=== PATIENT | male | born 1945 | race African-American/Black ===

== ENCOUNTER 2017-08-03 22:25 | Inpatient (IN) | payer OTHER ==
[~2017-08-03] VITALS: Ht 188 cm; Wt 93.9 kg
[2017-08-03 22:26] VITALS: BP 230/138
[2017-08-03 22:56] LABS: ABSOLUTE BASOPHILS 0.1 thou/uL (0.0-0.2); ABSOLUTE EOSINOPHILS 0.2 thou/uL (0.0-0.7); ABSOLUTE LYMPHOCYTES 5.3 thou/uL (0.8-5.3); ABSOLUTE MONOCYTES 1.3 thou/uL (0.0-1.2); ABSOLUTE NEUTROPHILS 4.4 thou/uL (1.6-8.1); BASOPHILS 0.7 %; EOSINOPHILS 1.7 %; HEMATOCRIT 41.5 % (42.0-52.0); HEMOGLOBIN 13.5 gm/dL (14.0-18.0); MCH 31.8 pg (26.0-34.0); MCHC 32.6 g/dL (28.0-37.0); MCV 97.7 fL (80.0-100.0); MONOCYTES 11.2 %; MPV 10.3 fl. (7.2-11.1); NUCLEATED RBCS 0 /100WBC; PLATELET COUNT* 265 thou/uL (150-400); POLYS 39.4 %; RBC 4.25 mil/uL (4.50-6.00); RDW-CV 15.4 % (10.5-14.5); WBC 11.2 thou/uL (4.0-11.0)
[2017-08-03 23:14] LABS: URINE BILIRUBIN NEGATIVE (Negative); URINE BLOOD 1+ (Negative); URINE CLARITY CLEAR; URINE COLOR YELLOW; URINE GLUCOSE-RANDOM TRACE (Negative); URINE KETONES NEGATIVE (Negative); URINE LEUKOCYTES-REFLEX NEGATIVE (Negative); URINE NITRITE-REFLEX NEGATIVE (Negative); URINE PROTEIN 3+ (Negative); URINE UROBILINOGEN 0.2 E.U./dl (0.2-1.0)
[2017-08-03 23:16] LABS: APTT 30.6 Seconds (25.0-31.3); INR 1.2; PROTIME 11.2 Seconds (9.20-11.50)
[2017-08-03 23:20] LABS: AMORPHOUS URATES Moderate /LPF (None Seen); BACTERIA-REFLEX >30 Many /HPF (None Seen); COARSE GRANULAR CASTS 0-3 Few /LPF (None Seen); FINE GRANULAR CASTS 0-3 Few /LPF (None Seen); HYALINE CASTS 0-3 Few /LPF (None Seen); MUCUS 4-6 Moderate strn/LPF (None Seen); SQUAMOUS 0-3 Few /LPF (0-3); TRANSITIONAL EPITHEL CELL 0-3 Few /LPF (None Seen); URINE WBC-REFLEX >25 Many /HPF (0-5); WBC CLUMPS Moderate (None Seen)
[2017-08-03 23:28] LABS: BE -8.2 mmol/L (-2 to +3); HCO3 22.5 mmol/L (22.0-26.0)
[2017-08-03 23:29] LABS: PCO2 71.1 mmHg (35.0-45.0); pH 7.119 (7.340-7.450)
[2017-08-03 23:30] LABS: PO2 152.6 mmHg (75.0-100.0)
[2017-08-03 23:51] LABS: ANION GAP 13 mmol/L (7-16); BUN 26 mg/dL (7-18); CHLORIDE 104 mmol/L (98-107); CO2 22 mmol/L (21-32); POTASSIUM 3.5 mmol/L (3.5-5.1); SODIUM 139 mmol/L (136-145)
[2017-08-03 23:52] LABS: CALCIUM 8.5 mg/dL (8.5-10.1); CREATININE 2.1 mg/dL (0.6-1.3); GLUCOSE 166 mg/dL (70-99)
[2017-08-03 23:57] LABS: ALBUMIN 3.5 g/dL (3.4-5.0); ALKALINE PHOSPHATASE 70 U/L (46-116); SGOT 55 U/L (15-37); SGPT 42 U/L (30-65); TOTAL BILIRUBIN 0.4 mg/dL (<0.1-1.0); TOTAL PROTEIN 8.1 g/dL (6.4-8.2)
[2017-08-04] VITALS (27 sets, daily range): BP systolic 101–178; BP diastolic 49–114
[2017-08-04 00:14] LABS: NT-PRO BRAIN NAT PEPTIDE 590 pg/mL (<300); TROPONIN-I LEVEL <0.06 ng/mL (<0.06)
--- NOTE | 2017-08-04 00:40 | NUR ---
PT TAKEN TO CT BY BOX TRUCK OWNER OPERATOR AND RT ON VENTILATOR AND LIFEPAK AT THIS TIME.
--- NOTE | 2017-08-04 01:20 | NUR ---
PATIENT ARRIVED ON UNIT @ 110. ON VENT, BP 160/93, RR 16, HR 94, O2 95. PT THRASHING, RESTLESS IN BED. OG IN PLACE TO LIS. HAS LARGE THICK SECRETIONS BEIGE, PINK, TINGED SECRETIONS. WILL CONTINUE MONITORING CLOSELY.
[2017-08-04 06:09] LABS: BE -4.7 mmol/L (-2 to +3)
--- NOTE | 2017-08-04 07:49 | NUR ---
PATIENT PROGRESSING TOWARDS GOALS. ON PROPOFOL GTT, BP, HR, RR O2 ALL WNL. CONTINUOUS ORAL CARE GIVEN. VENTILATOR STANDING ORDERS INITIATED. PULMONARY CONSULTED. MERIUM IN WAITING ROOM. SHE HAS NO VOICED CONCERNS AT THE MOMENT. WILL CONTINUE TO MONITOR CLOSELY.
--- NOTE | 2017-08-04 07:57 | NUR ---
7103 ASSUMED CARE OF PATIENT. PLEASE SEE DOCUMENTED ASSESSMENT. PT ON VENT WITH PROPOFOL SEDATION. DR VELAZQUEZ HERE AND WENT TO WAITING ROOM TO SPEAK WITH SPOUSE
[2017-08-04 08:25] LABS: INFLUENZA A ANTIGEN None Detected (None Detect); INFLUENZA B ANTIGEN None Detected (None Detect)
--- NOTE | 2017-08-04 08:35 | NUR ---
DISCUSSED FLU SHOT WITH SPOUSE AND SON AND PT WILL DECLINE FLU SHOT AT THIS TIME. DR NARAYAN ON UNIT AND UPDATED ON PATIENT STATUS
[2017-08-04 10:01] LABS: HEMATOCRIT 38.1 % (42.0-52.0); HEMOGLOBIN 12.8 gm/dL (14.0-18.0); MCHC 33.5 g/dL (28.0-37.0); MCV 95.3 fL (80.0-100.0); NUCLEATED RBCS 0 /100WBC; PLATELET COUNT* 213 thou/uL (150-400); RDW-CV 15.4 % (10.5-14.5)
[2017-08-04 10:11] LABS: ALBUMIN 3.1 g/dL (3.4-5.0); ALKALINE PHOSPHATASE 68 U/L (46-116); ANION GAP 8 mmol/L (7-16); BUN 30 mg/dL (7-18); CALCIUM 8.2 mg/dL (8.5-10.1); CHLORIDE 105 mmol/L (98-107); CHOLESTEROL 202 mg/dL (<200); CO2 27 mmol/L (21-32); CREATININE 2.1 mg/dL (0.6-1.3); GLUCOSE 140 mg/dL (70-99); HDL CHOLESTEROL 34 mg/dL (>40); LDL CHOLESTEROL 151 mg/dL (<100); MAGNESIUM 1.9 mg/dL (1.8-2.4); POTASSIUM 4.1 mmol/L (3.5-5.1); SGOT 56 U/L (15-37); SGPT 59 U/L (30-65); SODIUM 140 mmol/L (136-145); TC:HDL 5.9 Ratio (Not establshd); TOTAL BILIRUBIN 0.5 mg/dL (<0.1-1.0); TOTAL PROTEIN 7.3 g/dL (6.4-8.2); TRIGLYCERIDE 89 mg/dL (<150); VLDL 18 mg/dL (<40)
[2017-08-04 10:12] LABS: SERUM ASSESSMENT Clear
--- NOTE | 2017-08-04 10:18 | NUR ---
ECHOCARDIOGRAM IN PROGRESS. HAND COUNTER NOW AWARE OF PATIENT.
[2017-08-04 10:20] LABS: ABSOLUTE LYMPHOCYTES 0.6 thou/uL (0.8-5.3); ABSOLUTE NEUTROPHILS 8.4 thou/uL (1.6-8.1)
[2017-08-04 10:21] LABS: ANISOCYTOSIS 1+; PLATELET ESTIMATE ADEQUATE; POIKILOCYTOSIS 1+
--- NOTE | 2017-08-04 10:45 | NUR ---
PT ADMITTED LAST NIGHT WITH RESP FAILURE, WAS INTUBATED IN THE E.D. PT REMAINS ON VENT, NOT IN THE ROOM AT THIS TIME. WILL ASSESS AT LATER TIME.
[2017-08-04] MEDS ORDERED: NORVASC10 MG PO (12:56)
[2017-08-04] MEDS ORDERED: LISINOPRIL-HCT1 EAC1 PO (12:57)
[2017-08-04] MEDS ORDERED: FLOMAX0.4 MG PO (12:58)
[2017-08-04] MEDS ORDERED: VIAGRA100 MG PO (12:59)
[2017-08-04] MEDS ORDERED: CIALIS20 MG PO (13:00)
--- NOTE | 2017-08-04 13:53 | 2DMMODE ---
[place] [address] 2 D/M-MODE ECHOCARDIOGRAM Name: JUAN RAMON CASAS Room: [address] IN [facility]#: [id number] Admission: 08/03/17 Attend Phys: Osiel Bennett, Discharge: Date of : 43 Date of Service: 08/04/17 1353 Report #: [id number] THIS REPORT FOR: //name// APPROVED REPORT Study performed: 08/04/2017 10:11:39 EXAM: Comprehensive 2D, Doppler, and color-flow Echocardiogram Patient Location: In-Patient Room #: 003 Status: routine BSA: 2.12 HR: 64 bpm BP: 117/66 mmHg Rhythm: NSR Other Information Study Quality: Good Indications Dyspnea Respiratory failure, pulmonary edema 2D Dimensions LVEF(%): 44.19 (>50%) IVSd: 20.77 (7-11mm) LVOT Diam: 23.16 (18-24mm) LVDd: 46.69 mm PWd: 11.32 (7-11mm) Ascending Ao: 27.44 (22-36mm) LVDs: 36.49 (25-40mm) Aortic Root: 32.80 mm Rose's LVEF: 44.19 % Volumes Left Atrial Volume (Systole) LA ESV Index: 36.00 mL/m2 Aortic Valve AoV Peak Gary.: 1.36 m/s AO Peak Gr.: 7.41 mmHg LVOT Max P.43 mmHg AO Mean Gr.: 4.37 mmHg LVOT Mean P.72 mmHg LVOT Max V: 1.05 m/s AO V2 VTI: 22.89 cm LVOT Mean V: 0.58 m/s YVONNE (VTI): 3.31 cm2 LVOT V1 VTI: 18.00 [place] [address] 2 D/M-MODE ECHOCARDIOGRAM Name: JUAN RAMON CASAS Room: [address] IN ..#: [id number] Admission: 08/03/17 Attend Phys: Osiel Bennett, Discharge: Date of : 43 Date of Service: 08/04/17 1353 Report #: [id number] E/A Ratio: 0.97 MV Decel. Time: 244.79 ms MV E Max Gary.: 0.82 m/s MV PHT: 70.99 ms MVA (PHT): 3.10 cm2 TDI E/Lateral E': 16.40 E/Medial E': 20.50 Medial E' Gary.: 0.04 m/s Lateral E' Gary.: 0.05 m/s Pulmonary Valve PV Peak Gary.: 0.85 m/s PV Peak Gr.: 2.89 mmHg Left Ventricle The left ventricle is normal size. There is normal LV segmental wall motion. Moderate concentric left ventricular hypertrophy. Left ventricular systolic function is normal. LVEF is 55-60%. Transmitral Doppler flow pattern suggests impaired LV relaxation. Right Ventricle The right ventricle is normal size. The right ventricular systolic function is normal. Atria Left atrium is mildly dilated. The right atrium size is normal. Aortic Valve Mild aortic valve sclerosis. No aortic regurgitation is present. There is no aortic valvular stenosis. Mitral Valve The mitral valve is normal in structure. Trace mitral regurgitation. No evidence of mitral valve stenosis. Tricuspid Valve The tricuspid valve is normal in structure. There is no tricuspid valve regurgitation noted. Pulmonic Valve The pulmonary valve is normal in structure. There is no pulmonic valvular regurgitation. Great Vessels The aortic root is normal in size. IVC is [place] [address] 2 D/M-MODE ECHOCARDIOGRAM Name: MELISSA CASASJOVANA FERMIN Room: [address] [place] [facility]#: [id number] Admission: 08/03/17 Attend Phys: Osiel Bennett, Discharge: Date of : 43 Date of Service: 08/04/17 1353 Report #: [id number] collapses with >50% inspiration Pericardium There is no pericardial effusion. <Conclusion> The left ventricle is normal size. Moderate concentric left ventricular hypertrophy. Left ventricular systolic function is normal. LVEF is 55-60%. Transmitral Doppler flow pattern suggests impaired LV relaxation. Left atrium is mildly dilated. Trace mitral regurgitation. <ELECTRONICALLY SIGNED> By: Ruslan Kimbrough MD, FACC 08/04/17 1353 1353 1353 Ruslan Kimbrough MD, FACC /INF
--- NOTE | 2017-08-04 14:44 | EKG ---
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: AJ : 1945 Requested By: Alejandro Jean Order Number: [id number] MD: Ruslan Kimbrough Measurements Intervals [place] Rate: 148 P: 78 SD: 143 QRS: 38 QRSD: 94 T: 101 QT: 289 QTc: 454 Interpretive Statements Multifocal atrial tachycardia RSR' in V1 or V2, probably normal variant Probable LVH with secondary repol abnrm ST depression, probably rate related No previous ECG available for comparison Electronically Signed On 08-04-2017 14:44:08 FORKLIFT TECHNICIAN by Ruslan Kimbrough [email or web address] <ELECTRONICALLY SIGNED> By: Ruslan Kimbrough MD, [facility] 08/04/17 1444 31 31 Ruslan Kimbrough MD, [facility] /EPI
--- NOTE | 2017-08-04 17:01 | NUR ---
PATIENT MAKING SOME PROGRESS TOWARDS GOALS. NO FORMAL TRIAL OFF OF SEDATION BUT PATIENT HAS BEEN ABLE TO FOLLOW COMMANDS AND OPEN EYES TO VOICE. SEDATED ON VENT WITH PROPOFOL GTT AND FENTANYL PRN. ECHO OF HEART COMPLETED AND VENOUS DOPPLERS DONE. SEEN BY CONSULTS. MULTIPLE VISITORS
[2017-08-05] VITALS (19 sets, daily range): BP systolic 108–140; BP diastolic 47–66
[2017-08-05 02:41] LABS: URINE BILIRUBIN NEGATIVE (Negative); URINE BLOOD TRACE (Negative); URINE CLARITY CLEAR; URINE COLOR STRAW; URINE GLUCOSE-RANDOM NEGATIVE (Negative); URINE KETONES NEGATIVE (Negative); URINE LEUKOCYTES NEGATIVE (Negative); URINE NITRITE NEGATIVE (Negative); URINE PROTEIN NEGATIVE (Negative); URINE UROBILINOGEN 0.2 E.U./dl (0.2-1.0)
--- NOTE | 2017-08-05 05:30 | NUR ---
PT. PROGRESSING TOWARDS GOALS. VITAL SIGNS HAVE BEEN WITHIN NORMAL LIMITS THROUGHOUT SHIFT. FENTANYL GIVEN X2 PER PRN ORDER DUE TO RESTLESSNESS. PROPOFOL GTT REMAINS AT 50 MCG/KG/MIN. PT. WAS ABLE TO FOLLOW COMMANDS THIS SHIFT. ADEQUATE URINE OUTPUT. NO LABS ORDERED FOR THIS A.M. FAMILY UPDATED ON PT. STATUS. WILL CONTINUE TO MONITOR.
--- NOTE | 2017-08-05 07:05 | CON ---
[address] [address] CONSULTATION Name: JUAN RAMON CASAS Room: [address] IN M.R.#: [id number] Admission: 08/03/17 Attend Phys: Osiel Bennett MD Discharge: Date of : 43 Report #: [id number] THIS REPORT FOR: //name// CC: Osiel Bennett REASON FOR CONSULTATION: Acute respiratory failure. HISTORY OF PRESENT ILLNESS: The patient was intubated and sedated at the time of my evaluation. I did review the medical records and discussed with the nursing staff. No family at the bedside. He is a 72-year-old male patient with history of hypertension who presented to the emergency room with shortness of breath. Apparently, he had a history of viral syndrome and symptoms of upper respiratory tract infection a week ago that he was improving for a few days prior to hospitalization. However, he woke up the night of the admission with shortness of breath and he was in tripod position. In the ER, he was in significant distress, he was intubated. It was felt that he has pulmonary edema and he was given Lasix. Chest x-ray actually supports this pulmonary vascular congestion, his blood pressure was more than 200 systolic. Per the RN report, there is no significant secretion through the ET tube, but there is some oral secretions. He has history of smoking, although there is no mention of COPD in his records. His pCO2 initially was low, but this morning, his FiO2 on the vent decreased to 40%. Per the record, he is not known to have cardiac history. ALLERGIES: No known drug allergies. PAST MEDICAL HISTORY: Only mentioned of hypertension. PAST SURGICAL HISTORY: None. SOCIAL HISTORY: He smokes 1 pack per day for the last 30 years. Also, he drinks 1-2 beers daily. FAMILY HISTORY: Not obtainable. REVIEW OF SYSTEMS: At this point, not obtainable, he is intubated and sedated. PHYSICAL EXAMINATION: VITAL SIGNS: On examination, he is on 40% FiO2, O2 saturation 95% on the monitor, blood pressure 132/81, breathing 20 times a minute on the vent, and temperature 37. GENERAL: In bed, sedated, intubated and gastric tube in place. HEENT: Head normocephalic, atraumatic. Pupils are equal, reactive to light. External ear looks healthy and normal. He is not pale, not jaundiced. Oral cavity, moist mucous membrane with ET tube in place. NECK: Supple. No palpable lymph node. No palpable thyroid. Trachea central. CHEST: Good air movement heard bilaterally, some basilar crackles, [place] [address] CONSULTATION Name: JUAN RAMON CASAS JR Room: [address] IN M.R.#: [id number] Admission: 08/03/17 Attend Phys: Osiel Bennett MD Discharge: Date of : 43 Report #: [id number] wheezes, no tenderness, no deformities on the chest to inspection. HEART: S1, S2, no murmur. ABDOMEN: Benign, soft, lax, nontender, positive bowel sounds. LOWER EXTREMITIES: No edema. No calf tenderness. NEUROLOGIC: He is sedated. Further surgical evaluation could not be done. LYMPHATICS: No palpable lymph node. MUSCULOSKELETAL: No deformities. No contractures. PSYCHIATRIC: Mood and affect could not be evaluated. He is sedated. LABORATORY DATA: His chest x-ray showing endotracheal tube in good position and bilateral pulmonary infiltrates. CT scan report of the chest without contrast is pending, although I reviewed the CT scan showing bilateral consolidation basilarly. His creatinine was elevated at 2.1. His lactic acid elevated at 2.3. His BNP was elevated in addition to elevated troponin. His potassium is 3.5. His INR is 1.2. His ABGs 7.35/38/250, initially it was 7.11/71/152, initially when he placed on the vent. His influenza A is negative and influenza B screen is negative. His white blood count is 11.2, hemoglobin 15.2, and platelets of 265. IMPRESSION: 1. Acute hypoxic hypercapnic respiratory failure. 2. Presume chronic obstructive pulmonary disease with history of smoking. 3. Bilateral infiltrates/pneumonia. 4. Congestive heart failure exacerbation with fluid overload. 5. Hypertension. The patient with acute respiratory failure, multifactorial as mentioned above, I agree with the antibiotics, scheduled nebulization treatment. We need to keep negative fluid balance. Continue diuresis. Keep the current plan of sedation; however, in day or 2, we may consider switching him from propofol to Versed. He is on fentanyl p.r.n. He is on steroids too, which is appropriate at this point. I agree with the Doppler ultrasound and V/Q scan. We will follow along with you. Will do a sputum culture and sensitivity, repeat ABGs and chest x-ray in the morning. Thank you for the consult. <ELECTRONICALLY SIGNED> By: Mary Monroy MD 08/05/17 0705 0928 1311Dnidhi Hill MD /nt
--- NOTE | 2017-08-05 07:11 | NUR ---
PT REMANS ON VENT PT WILL OPEN EYES WITH STIMULI. NO AM LABS NOTED. PT REMANS ON PROPOFOL GTT. HERE TO SEE PT.
[2017-08-05 07:54] LABS: ABSOLUTE LYMPHOCYTES 0.7 thou/uL (0.8-5.3); ABSOLUTE MONOCYTES 0.6 thou/uL (0.0-1.2); ABSOLUTE NEUTROPHILS 11.4 thou/uL (1.6-8.1); BASOPHILS 0.1 %; HEMATOCRIT 35.4 % (42.0-52.0); HEMOGLOBIN 12.1 gm/dL (14.0-18.0); LYMPHOCYTES 5.6 %; MCH 31.6 pg (26.0-34.0); MCHC 34.2 g/dL (28.0-37.0); MCV 92.4 fL (80.0-100.0); MONOCYTES 4.7 %; MPV 10.1 fl. (7.2-11.1); NUCLEATED RBCS 0 /100WBC; PLATELET COUNT* 228 thou/uL (150-400); POLYS 89.6 %; RBC 3.83 mil/uL (4.50-6.00); RDW-CV 14.7 % (10.5-14.5); WBC 12.7 thou/uL (4.0-11.0)
[2017-08-05 07:58] LABS: CALCIUM 8.3 mg/dL (8.5-10.1); CREATININE 2.3 mg/dL (0.6-1.3); POTASSIUM 3.8 mmol/L (3.5-5.1)
--- NOTE | 2017-08-05 08:13 | NUR ---
DR KINGSLEY HERE, PT TO TUBE TRIAL FOR 30 MINUETS, RT AWARE PROPOFOL OFF AT THIS TIME. IN ROOM UPDATED ON PLAN OF CARE.
--- NOTE | 2017-08-05 09:11 | CON ---
[address] [address] CONSULTATION Name: JUAN RAMON CASAS JR Room: [address] IN .R.#: [id number] Admission: 08/03/17 Attend Phys: Osiel Bennett MD Discharge: Date of : 43 Report #: [id number] THIS REPORT FOR: //name// CC: Osiel Love DO Osiel Bennett INDICATION: Acute heart failure. HISTORY OF PRESENT ILLNESS: The patient is a very pleasant 72-year-old -Lao male who was intubated in the emergency room when he was found to be in respiratory distress. Per the family, he experienced increasing shortness of breath yesterday. He got to the point where he was gasping for air and brought to the emergency room. He was found to be quite hypertensive with systolic blood pressure above 200. He has a history of longstanding high blood pressure for which he takes medication. He is without other significant past medical history. He apparently had some shoulder surgery as a child. The patient reports upper respiratory tract infection type symptoms last week that was apparently improving until this episode. There was no report of chest pain. PAST MEDICAL HISTORY: 1. Hypertension. 2. Shoulder surgery remotely. ALLERGIES: None documented. HOME MEDICATIONS: None listed. REVIEW OF SYSTEMS: Not obtainable as the patient is intubated. PHYSICAL EXAMINATION: VITAL SIGNS: Presently, blood pressure 108/58, pulse 66 and regular. GENERAL: This is an male who is healthy appearing, intubated and sedated. HEENT: Head is normocephalic, atraumatic. NECK: Shows no jugular venous distention. CHEST: Reveals clear lung brunner. CARDIAC: Reveals a regular rhythm without gallop or murmur. ABDOMEN: Reveals normal bowel sounds. The abdomen is soft and nontender. EXTREMITIES: Shows no edema. Peripheral pulses palpable. Chest x-ray shows pulmonary edema and cardiomegaly. [place] [address] CONSULTATION Name: JUAN RAMON CASAS Room: [address] IN [facility].#: [id number] Admission: 08/03/17 Attend Phys: Osiel Bennett MD Discharge: Date of : 43 Report #: [id number] Labs are reviewed. Electrolytes are within normal limits. BUN 30, creatinine 2.1, serum glucose 140. LFTs within normal limits. Troponin initially less than 0.06, subsequently 0.92, followup troponin is pending. NT-proBNP 590, total cholesterol 202, triglycerides 89, HDL 34, and LDL 151. White blood cell count 9.0, hemoglobin 12.8, and platelet count 213,000. ABG shows a pH of 7.35, pCO2 of 38, and pO2 of 250 after being intubated. Initial blood gas showed a pH of 7.119, pCO2 of 71, and PO2 of 152. IMPRESSION AND RECOMMENDATIONS: 1. Acute respiratory failure, multifocal. The patient has some element of congestive heart failure, likely diastolic in nature. An echocardiogram has been ordered. The patient is intubated and stable at present. 2. Recent upper respiratory tract infection with multi-lobe infiltrate presently. We will need to repeat x-ray after diuresis to look for residual infiltrate. Pulmonology is seeing the patient. 3. Elevated troponin, possibly due to cardiac strain from acute respiratory failure. We will need at least stress testing in the near future if noninvasive evaluation pending the results of echocardiogram. 4. Hypertension. Blood pressure low normal presently after diuresis. We will assess the patient's needs for antihypertensive medications and make adjustments as needed. 5. Chronic tobacco use. Cessation will be advised prior to discharge. <ELECTRONICALLY SIGNED> By: Ruslan Kimbrough MD, FACC 08/05/17 0911 1015 1556Micalli Kimbrough MD, FACC /nt
--- NOTE | 2017-08-05 09:30 | NUR ---
PT HR 140'S , EKG OBTAINED, ST. CARDIOLOGY NURSE CALLED, WILL CALL DR DEL REAL AND UPDATE.
--- NOTE | 2017-08-05 10:22 | NUR ---
AMIODORNE BOLUS GIVEN AND AMIODORONE GTT STARTED. FAMILY IN ROOM.NOTED 8-9 RUNS OF V TACH.
--- NOTE | 2017-08-05 11:40 | NUR ---
DR TROTTER ON UNIT. FELLOW STAFF MEMBER HELPED WITH CARDIOVERSION IN ROOM.PT IN SR.
--- NOTE | 2017-08-05 19:30 | NUR ---
PT REMANS AROUSABLE ON VENT. PROPOFOL GTT REMAINS INFUSING. PT TURNED THROUGH SHIFT. FREQUENT ORAL CARE GIVEN. PT HAS HAD NO FURTHER RUNS OF V-TACH SINCE CARDIOVERSION. MULTIPLE FAMILY MEMBERS IN ROOM THROUGH OUT DAY. PT IS PROGRESSING TOWARDS DISCHARGE GOALS.
[2017-08-06] VITALS (20 sets, daily range): BP systolic 128–199; BP diastolic 56–98
[2017-08-06 04:23] LABS: HEMATOCRIT 37.1 % (42.0-52.0); HEMOGLOBIN 12.6 gm/dL (14.0-18.0); MCH 31.9 pg (26.0-34.0); MCHC 33.8 g/dL (28.0-37.0); MCV 94.3 fL (80.0-100.0); MPV 10.8 fl. (7.2-11.1); RBC 3.94 mil/uL (4.50-6.00); RDW-CV 15.1 % (10.5-14.5); WBC 11.9 thou/uL (4.0-11.0)
[2017-08-06 04:25] LABS: CALCIUM 8.4 mg/dL (8.5-10.1); CREATININE 2.6 mg/dL (0.6-1.3); MAGNESIUM 2.3 mg/dL (1.8-2.4); POTASSIUM 3.7 mmol/L (3.5-5.1)
--- NOTE | 2017-08-06 05:59 | NUR ---
MINIMAL PROGRESSION TOWARDS GOALS. ASSESSMENTS AND VS OBTAINED THROUGH OUT THE NIGHT, SEE CHARTING. COAL INSPECTOR ON AND TRACING SB/SR. PT REMAINS ON A AMNIO GTT. PT REMAINS ON VENT WITH ORDERED SETTINGS. SEDATION USED IS PROPOFOL. OG IS AT 70 AND HAS NOVASOURCE RENAL INFUSING AT 30ML/HR. PT HAD VERY LITTLE RESIDUALS.
--- NOTE | 2017-08-06 06:18 | NUR ---
TURNED OFF TUBE FEEDING FOR WEANING TRIAL THIS AMM.
--- NOTE | 2017-08-06 07:51 | NUR ---
0211 ASSUMED CARE OF PATIENT. PLEASE SEE DOCUMENTED ASSESSMENT. DR VELAZQUEZ TO SEE PATIENT. TITRATING PROPOFOL DOWN PATIENT IS TO TRIAL TODAY. AMIO GTT AT 0.5 MG/MN
--- NOTE | 2017-08-06 08:40 | NUR ---
SEDATION OFF. STARTING VENT TRIAL. PT FOLLOWS KATHY. VS [id number] 156/70
--- NOTE | 2017-08-06 09:07 | NUR ---
PATIENT TOLERATING TRIAL. RT HERE TO DRAW ABG.
--- NOTE | 2017-08-06 09:08 | NUR ---
TRIAL COMPLETED.GCS 12 BP 184/79 HR 58 RESP 18 SAT 100% ABG DRAWN. WILL KEEP PT ON TRIAL SETTINGS AND AWAKE
[2017-08-06 09:16] LABS: BE 0 mmol/L (-2 to +3); HCO3 24.8 mmol/L (22.0-26.0); PCO2 41.1 mmHg (35.0-45.0); PO2 93.9 mmHg (75.0-100.0); pH 7.399 (7.340-7.450)
--- NOTE | 2017-08-06 09:26 | NUR ---
ABG'S TO DR GUY, ORDERS RECEIVED TO EXTUBATE PT
--- NOTE | 2017-08-06 09:57 | NUR ---
0930 EXTUBATED AND OG REMOVED PER ORDER. PLACED ON OXYGEN AT O2 AT 2LPM NASAL CANNULA. RESTRAINTS REMOVED. GIVEN YANKAUER FOR ORAL SECRETIONS
--- NOTE | 2017-08-06 13:39 | NUR ---
SPOKE WITH DR TROTTER REGARDING PERSISTANT HYPERTENSION. ORDERS NOTED.
--- NOTE | 2017-08-06 13:50 | EKG ---
[place] [address] ELECTROCARDIOGRAM REPORT Name: JUAN RAMON CASAS JR Room: [address] ADM IN M.R.#: [id number] Admission: 08/03/17 Attend Phys: Osiel Bennett MD Discharge: Date of : 43 Report #: [id number] THIS REPORT FOR: //name// [facility] Test Date: 2017-08-05 Test Time: 09:29:47 Pat Name: JUAN RAMON CASAS Department: Room: [address] Gender: M Hand Picker: UNKNOWN : 1945 Requested By: Ruslan Kimbrough Order Number: [id number] Josafat MD: Ruslan Kimbrough Measurements Intervals [place] Rate: 147 P: 0 [place]: 54 QRS: 31 QRSD: 93 T: 84 QT: 334 QTc: 523 Interpretive Statements Atrial flutter with 21 conduction Consider left ventricular hypertrophy ST depression, probably rate related Prolonged QT interval Missing lead(s): V2 Compared to ECG 08/03/2017 22:32:30 Prolonged QT interval now present ST (T wave) deviation still present Electronically Signed On 08-06-2017 13:50:47 COTTON ROLL PACKER by Ruslan Kimbrough [email or web address] <ELECTRONICALLY SIGNED> By: Ruslan Kimbrough MD, FACC 08/06/17 1350 0929 0929 Ruslan Kimbrough MD, FAC /EPI
--- NOTE | 2017-08-06 16:12 | NUR ---
RENAL ULTRASOUND IN PROGRESS.
--- NOTE | 2017-08-06 18:32 | NUR ---
PATIENT PROGRESSING TOWARDS GOALS. OFF OF VENTILATOR WITH GOOD OXYGENATION ON 2LPM CANNULA. RESUMED DIET. TRANSITIONED TO ORAL MEDICATIONS. MANY VISITORS. GOAL IS TO CONTROL HYPERTENSION
[2017-08-07] VITALS (10 sets, daily range): BP systolic 123–167; BP diastolic 57–78
[2017-08-07 04:25] LABS: HEMATOCRIT 42.1 % (42.0-52.0); MCH 31.9 pg (26.0-34.0); MCHC 35.2 g/dL (28.0-37.0); MCV 90.6 fL (80.0-100.0); MPV 9.7 fl. (7.2-11.1); RBC 4.64 mil/uL (4.50-6.00); RDW-CV 14.5 % (10.5-14.5); WBC 12.8 thou/uL (4.0-11.0)
[2017-08-07 04:41] LABS: HEMOGLOBIN 14.8 gm/dL (14.0-18.0)
[2017-08-07 04:50] LABS: CALCIUM 8.8 mg/dL (8.5-10.1); MAGNESIUM 2.4 mg/dL (1.8-2.4); POTASSIUM 3.3 mmol/L (3.5-5.1)
[2017-08-07 05:01] LABS: CREATININE 1.6 mg/dL (0.6-1.3)
--- NOTE | 2017-08-07 05:26 | NUR ---
PROGRESSION TOWARDS GOAL. ASSESSMENT AND VS OBTAINED THROUGH OUT THE NIGHT, BP REMAINED IN THE NORMAL RANGE AND NO HYDRALIZNE WAS GIVEN. CUSTOMS COMPLIANCE SPECIALIST ON AND TRACING SB/SR. O2 SAT WAS WITH IN NORMAL RANGE WITH 2 L NC ON. PT SLEPT THROUGH OUT THE NIGHT WITH OUT ANY COMPLAINTS.
--- NOTE | 2017-08-07 10:27 | NUR ---
SPOKE WITH PT, HE IS ALERT AND ORIENTED AND ABLE TO ANSWER QUESTIONS. PT WAS EXTUBATED YESTERDAY. PT LIVES AT HOME WITH HIS . HE IS NORMALLY ACTIVE AND INDEP. HE HAS NO DME AT HOME. PT PLANS ON RETURNING HOME WITH . DISCUSSED ROLE OF CASE MGT, WILL CONTINUE TO FOLLOW.
--- NOTE | 2017-08-07 15:20 | NUR ---
PT TRANSFERED TO 2ND FLOOR ROOM 226. PT ASSESSMENT CHARTED. NO COMPLAINTS OF SOA. NO COMPLAINTS OF PAIN. PT UP TO WHEELCHAIR IN ROOM 2 TIMES DURING THE DAY AND PT IS UNSTEADY ON HIS FEET. PT DIDN'T HAVE ANY OTHER COMPLAINTS. BREAKFAST AND LUNCH TOLERATED WELL. REPORT GIVEN TO TELE NURSE AND PT IS READY FOR TRANSFER.
--- NOTE | 2017-08-07 15:28 | NUR ---
RECEIVED REPORT. PT TRANSFERRED TO ROOM 226 VIA W/C. VSS. CARDIAC MONTIORING PLACED. PT ALERT AND ORIENTED. PT ON 2L PER NC. IV SALINE LOCKED. PT ORIENTED TO ROOM AND CALL LIGHT. PT DENIES ANY COMPLAINTS OF PAIN OR DISCOMFORT. CALL LIGHT IS WITHIN REACH. WILL CONTINUE TO MONITOR FOR DURATION OF SHIFT.
[2017-08-07 17:18] LABS: CREATININE 1.8 mg/dL (0.6-1.3); MAGNESIUM 2.5 mg/dL (1.8-2.4); POTASSIUM 3.4 mmol/L (3.5-5.1)
--- NOTE | 2017-08-07 18:05 | NUR ---
VSS. CARDIAC MONTIORING IN PLACE SR-SB THIS SHIFT. PT PROGRESSING TOWARDS GOALS. PT TITRATED TO RA WITH O2 SAT AT 95% PT HAS HAD NO COMPLAINTS OF PAIN OR DISCOMFORT. PT IS GETTING UP WITH SELF IN ROOM. PT AMBULATED IN [place] WITH PHYSCIAL THERAPY THIS SHIFT. PT INFORMED OF PLAN OF CARE. REPLACING PT'S POTASSIUM. PT COMMUNICATES UNDERSTANDING. CALL LIGHT IS WITHIN REACH. WILL CONTINUE TO MONTIOR FOR DURAITON OF SHIFT.
[2017-08-08] VITALS: BP 124/78; BP 125/61
--- NOTE | 2017-08-08 03:14 | NUR ---
ASSUMED CARE OF PT AT 1900. PT IS ALERT AND ORIENTED. VSS. PERRLA. NO COMPLAINTS OF PAIN. PT IS IN SINUS RYTHM WITH A PROLONGED WA INTERVAL ON THE TELEMETRY. PT IS RESTING COMFORTABLY IN BED. RESPIRATIONS ARE EVEN AND NONLABORED. WILL CONTINUE TO MONITOR PT.
[2017-08-08 04:00] VITALS: BP 144/65
[2017-08-08 04:21] LABS: CREATININE 1.5 mg/dL (0.6-1.3); MAGNESIUM 2.3 mg/dL (1.8-2.4); POTASSIUM 3.5 mmol/L (3.5-5.1)
[2017-08-08 08:00] VITALS: BP 166/74
--- NOTE | 2017-08-08 08:00 | NUR ---
AM ASSESSMENT COMPLETE, DEFER TO COMPUTER CHARTING. STUFFING MACHINE OPERATOR TRACKING SB. DENIES CHEST PAIN, DIZZINESS OR ANY DISCOMFORT AT THIS TIME. SOA NOTED WITH ACTIVITY, DOES STATE THROAT SORE. CALL LIGHT WITHIN REACH, WILL MONITOR.
[2017-08-08] MEDS ORDERED: ASPIR 8181 MG PO (09:56)
[2017-08-08] MEDS ORDERED: ATORVASTATIN CA40 MG PO (09:56)
[2017-08-08 11:31] VITALS: BP 123/64
--- NOTE | 2017-08-08 12:30 | NUR ---
CONTINUE TO FOLLOW. DC ORDERS NOTED. MET WITH PT AND FAMILY, THEY HAD CARDIAC REHAB EDUCATION. PT DENIES DC NEEDS, PLANS TO RETURN HOME WITH FAMILY
[2017-08-08 15:43] VITALS: BP 157/75
[2017-08-08] MEDS ORDERED: PROCARDIA XL60 MG PO (16:16)
[2017-08-08] MEDS ORDERED: LASIX 40 MG TAB40 M2 PO (16:16)
[2017-08-08] MEDS ORDERED: CARVEDILOL25 MG PO (16:16)
[2017-08-08] MEDS ORDERED: POTASSIUM20 PO (16:16)
[2017-08-08] MEDS ORDERED: PACERONE 200 M200 M1 PO (16:16)
== END 2017-08-08 17:37 | disposition home or self-care (01) | DRG 208 ==
LOC: M.ERS 22:25 → M.ICU 23:52 → M.TBA-ER 23:52 → M.ICU 08-04 00:16 → M.2W 08-07 14:35
PROVIDERS: Family Medicine; Internal Medicine; ADMIT Internal Medicine
PROC: 5A1945Z Respiratory Ventilation, 24-96 Consecutive Hours (ICD-10-PCS; principal; 2017-08-04)
PROC: 0BH17EZ Insertion of Endotracheal Airway into Trachea, Via Natural or Artificial Opening (ICD-10-PCS; principal; 2017-08-04)
PROC: 5A2204Z Restoration of Cardiac Rhythm, Single (ICD-10-PCS; 2017-08-05)
DX: J96.01 Acute respiratory failure with hypoxia (principal); I21.4 Non-ST elevation (NSTEMI) myocardial infarction; J18.9 Pneumonia, unspecified organism; N17.0 Acute kidney failure with tubular necrosis; I26.99 Other pulmonary embolism without acute cor pulmonale; I50.33 Acute on chronic diastolic (congestive) heart failure; N39.0 Urinary tract infection, site not specified; R65.10 Systemic inflammatory response syndrome (SIRS) of non-infectious origin without acute organ dysfunction; J44.0 Chronic obstructive pulmonary disease with (acute) lower respiratory infection; I16.1 Hypertensive emergency; I11.0 Hypertensive heart disease with heart failure; F17.210 Nicotine dependence, cigarettes, uncomplicated; J96.02 Acute respiratory failure with hypercapnia; E87.70 Fluid overload, unspecified; I48.0 Paroxysmal atrial fibrillation; Z79.82 Long term (current) use of aspirin; Z79.899 Other long term (current) drug therapy; Z28.21 Immunization not carried out because of patient refusal

== ENCOUNTER 2017-08-16 12:22 | Emergency (ER) | payer OTHER ==
[~2017-08-16] VITALS: Ht 193 cm; Wt 87.1 kg
[~2017-08-16 12:22] MED LIST: ASPIR 8181 MG PO; ATORVASTATIN CA40 MG PO; CARVEDILOL25 MG PO; CIALIS20 MG PO; FLOMAX0.4 MG PO; LASIX 40 MG TAB40 M2 PO; LISINOPRIL-HCT1 EAC1 PO; NORVASC10 MG PO; PACERONE 200 M200 M1 PO; POTASSIUM20 PO; PROCARDIA XL60 MG PO; VIAGRA100 MG PO
[2017-08-16 13:51] VITALS: BP 133/67
== END 2017-08-16 13:51 | disposition home or self-care (01) ==
LOC: M.ERS 12:22
DX: R49.0 Dysphonia (principal); I10 Essential (primary) hypertension

== ENCOUNTER 2018-06-28 01:56 | Inpatient (IN) | payer OTHER ==
[2018-06-28] VITALS (12 sets, daily range): BP systolic 124–170; BP diastolic 64–119
[~2018-06-28] VITALS: Ht 193 cm; Wt 103.9 kg
[2018-06-28 02:21] LABS: ABSOLUTE BASOPHILS 0.1 thou/uL (0.0-0.2); ABSOLUTE EOSINOPHILS 0.2 thou/uL (0.0-0.7); ABSOLUTE LYMPHOCYTES 5.8 thou/uL (0.8-5.3); BASOPHILS 0.9 %; EOSINOPHILS 2.1 %; HEMATOCRIT 44.5 % (42.0-52.0); HEMOGLOBIN 14.1 gm/dL (14.0-18.0); LYMPHOCYTES 52.2 %; MCH 31.3 pg (26.0-34.0); MCHC 31.8 g/dL (28.0-37.0); MCV 98.5 fL (80.0-100.0); MONOCYTES 8.8 %; MPV 9.4 fl. (7.2-11.1); NUCLEATED RBCS 0 /100WBC; PLATELET COUNT* 296 thou/uL (150-400); RBC 4.52 mil/uL (4.50-6.00); RDW-CV 15.7 % (10.5-14.5); WBC 11.1 thou/uL (4.0-11.0)
[2018-06-28 02:40] LABS: ANION GAP 19 mmol/L (7-16); APTT 27.8 Seconds (25.0-31.3); BUN 18 mg/dL (7-18); CALCIUM 8.4 mg/dL (8.5-10.1); CHLORIDE 102 mmol/L (98-107); CO2 18 mmol/L (21-32); CREATININE 2.1 mg/dL (0.6-1.3); GLUCOSE 188 mg/dL (70-99); INR 1.1; POTASSIUM 3.6 mmol/L (3.5-5.1); PROTIME 10.8 Seconds (9.20-11.50); SODIUM 139 mmol/L (136-145)
[2018-06-28 02:51] LABS: ALBUMIN 3.7 g/dL (3.4-5.0); ALKALINE PHOSPHATASE 73 U/L (46-116); LIPASE 220 U/L (73-393); MAGNESIUM 2.2 mg/dL (1.8-2.4); NT-PRO BRAIN NAT PEPTIDE 559 pg/mL (<300); SGOT 67 U/L (15-37); SGPT 60 U/L (30-65); TOTAL BILIRUBIN 0.6 mg/dL (<0.1-1.0); TOTAL PROTEIN 8.3 g/dL (6.4-8.2); TROPONIN-I LEVEL <0.06 ng/mL (<0.06)
--- NOTE | 2018-06-28 06:00 | NUR ---
ADMITTED FROM ED TO ROOM 006 ON CART ESCORTED BY X2 RN'S, ORIENTED TO ROOM, CALL LIGHT, PHONE, DIET, POC, AND SAFETY, SPOUSE AT BEDSIDE, ESOMOL GTT 50MCG/KG/MIN AND CARDIZEM GTT 10MG/HR VIA INFUSION PUMP, AFIB HR CONTROLLED 90'S TO ONE-TEENS MONEY EXAMINER ON ADMISSION WITH FREQUENT PVC'S. ADMISSION HX AND ASSESSMENT COMPLETE, PT STATES HAS NOT TAKEN ANY HOME MEDICATIONS FOR APROXIMATELY 2 WEEKS BECAUSE "I DIDNT FEEL LIKE I NEEDED THEM", EDUCATED NEED TO TAKE MEDICATIONS ORDERED AND TO CONSULT MD BEFORE STOPPING ANY ORDERED MEDICATIONS, DENIES PAIN, SOA, NUMBNES, TINGLING, OR PALPITATIONS, HR DECREASED HIGH 50'S TO LOW 60'S, B/P WNL, TITRATED CARDIZEM GTT DOWN TO 5MG/HR, CONVERTED TO NSR 0455. AWAKE, ALERT, AND CONVERSATIVE SINCE ARRIVAL TO UNIT. VOIDED 250CC CLEAR YELLOW URINE VIA URINAL. CALL LIGHT REMAINS IN REACH THOUGHOUT SHIFT. UNABLE TO VERIFY HOME MEDICATON LIST, SPOUSE AND PT STATE UNSURE OF NAMES AND DOSAGES OF MEDICATIONS ORDERED. TO BRING IN LIST AFTER OBTAINING LIST FROM HOME THIS AM.
--- NOTE | 2018-06-28 09:56 | EKG ---
[place] [address] ELECTROCARDIOGRAM REPORT Name: JUAN RAMON CASAS JR Room: [address] ADM IN M.R.#: [id number] Admission: 06/28/18 Attend Phys: Daija Ndiaye MD Discharge: Date of : 43 Report #: [id number] THIS REPORT FOR: //name// [facility] ED Test Date: 2018-06-28 Test Time: 02:06:47 Pat Name: JUAN RAMON CASAS Department: Room: [facility] Gender: M Millwright Apprentice: : 1945 Requested By: Guicho Fabian Order Number: [id number] MD: Mario Harrison Measurements Intervals [place] Rate: 193 P: MD: QRS: 36 QRSD: 98 T: 228 QT: 238 QTc: 427 Interpretive Statements Atrial fibrillation with rapid V-rate Probable LVH with secondary repol abnrm ST depression, probably rate related Compared to ECG 08/05/2017 09:29:47 Atrial flutter no longer present ST (T wave) deviation still present Electronically Signed On 06-28-2018 9:56:18 MOLD POLISHER by Mario Harrison [email or web address] <ELECTRONICALLY SIGNED> By: Mario Harrison MD, [facility] 06/28/18 0956 0206 0206 Mario Harrison MD, [facility] /EPI
--- NOTE | 2018-06-28 14:19 | 2DMMODE ---
[place] [address] 2 D/M-MODE ECHOCARDIOGRAM Name: JUAN RAMON CASAS Room: [address] IN [facility]#: [id number] Admission: 06/28/18 Attend Phys: Daija Ndiaye, Discharge: Date of : 43 Date of Service: 06/28/18 1418 Report #: [id number] THIS REPORT FOR: //name// APPROVED REPORT Study performed: 06/28/2018 09:38:50 EXAM: Comprehensive 2D, Doppler, and color-flow Echocardiogram Patient Location: In-Patient Room #: [facility] Status: routine BSA: 2.35 HR: 61 bpm BP: 165/65 mmHg Rhythm: NSR Other Information Study Quality: Excellent Indications Dyspnea Chest Pain 2D Dimensions IVSd: 18.19 (7-11mm) LVOT Diam: 22.17 (18-24mm) LVDd: 51.16 mm PWd: 13.27 (7-11mm) Ascending Ao: 35.23 (22-36mm) LVDs: 33.35 (25-40mm) Aortic Root: 32.44 mm Volumes Left Atrial Volume (Systole) LA ESV Index: 44.70 mL/m2 Aortic Valve AoV Peak Gary.: 1.59 m/s AO Peak Gr.: 10.10 mmHg LVOT Max P.87 mmHg AO Mean Gr.: 5.38 mmHg LVOT Mean P.08 mmHg LVOT Max V: 1.10 m/s AO V2 VTI: 34.59 cm LVOT Mean V: 0.65 m/s YVONNE (VTI): 2.38 cm2 LVOT V1 VTI: 21.32 cm Mitral Valve E/A Ratio: 1.69 MV Decel. Time: 186.47 [place] [address] 2 D/M-MODE ECHOCARDIOGRAM Name: JUAN RAMON CASAS JR Room: [address] IN .R.#: [id number] Admission: 06/28/18 Attend Phys: Daija Ndiaye, Discharge: Date of : 43 Date of Service: 06/28/18 1418 Report #: [id number] MV E Max Gary.: 1.09 m/s MV PHT: 54.08 ms MVA (PHT): 4.07 cm2 TDI E/Lateral E': 13.63 E/Medial E': 15.57 Medial E' Gary.: 0.07 m/s Lateral E' Gary.: 0.08 m/s Pulmonary Valve PV Peak Gary.: 0.89 m/s PV Peak Gr.: 3.14 mmHg Tricuspid Valve RAP Estimate: 5.00 mmHg TR Peak Gr.: 31.06 mmHg RVSP: 36.00 mmHg PA Pressure: 36.00 mmHg Left Ventricle The left ventricle is normal size. There is normal LV segmental wall motion. Moderate concentric left ventricular hypertrophy. Left ventricular systolic function is normal. The left ventricular ejection fraction is within the normal range. LVEF is 60-65%. The left ventricular diastolic function is normal. Right Ventricle The right ventricle is normal size. The right ventricular systolic function is normal. Atria Left atrium is moderately dilated. Right atrium is dilated. Aortic Valve Mild aortic valve sclerosis. No aortic regurgitation is present. There is no aortic valvular stenosis. Mitral Valve The mitral valve is normal in structure. Moderate mitral regurgitation. No evidence of mitral valve stenosis. Tricuspid Valve The tricuspid valve is normal in structure. Mild tricuspid regurgitation. estimated pa pressure 40 mm Hg Pulmonic Valve The pulmonary valve is normal in structure. [place] [address] 2 D/M-MODE ECHOCARDIOGRAM Name: AUGUSTOJUAN RAMON FERMIN Room: [address] IN [facility]#: [id number] Admission: 06/28/18 Attend Phys: Daija Ndiaye, Discharge: Date of : 43 Date of Service: 06/28/18 1418 Report #: [id number] Great Vessels The aortic root is normal in size. IVC is normal in size and collapses >50% with inspiration. Pericardium There is no pericardial effusion. <Conclusion> Moderate concentric left ventricular hypertrophy. LVEF is 60-65%. Left atrium is moderately dilated. Mild aortic valve sclerosis. Moderate mitral regurgitation. Mild tricuspid regurgitation. estimated pa pressure 40 mm Hg <ELECTRONICALLY SIGNED> By: Mario Harrison MD, FACC 06/28/18 1418 1418 1418 Mario Harrison MD, FACC /INF
[2018-06-29] VITALS (7 sets, daily range): BP systolic 89–153; BP diastolic 46–79
--- NOTE | 2018-06-29 01:55 | NUR ---
PT RESTING QUIETLY WITH EYES CLOSED, BAGGAGE SECURITY CHECKER PREVIOUS READING SR WITH FREQUENT PVC'S AND PAC'S, CARDIAC RHYTHEM CHANGE ST HR ONE TEENS TO 130'S, PROGRESSING TO SUBSTAINED ST HR 130'S, EKG OBTAINED READING SINUS TACH HR 129, DENIES PALPITATIONS, SOA, DIZZYNESS, CHEST PAIN OR PRESSURE, NUMBNESS, TINGLING, OR NAUSEA, POTASSIUM, MAGNESIUM, AND TROPONIN SERUM LEVELS ORDERED STAT PER ICU PROTOCOL, SA02 DECREASED 89% ON RA, O2 4L PER NC, PAGED DR TROTTER 9925. AWAITING RETURN CALL, WILL CONTINUE TO MONITOR AND TX INDICATED.
[2018-06-29 02:46] LABS: HEMATOCRIT 38.5 % (42.0-52.0); HEMOGLOBIN 13.1 gm/dL (14.0-18.0); MCH 31.9 pg (26.0-34.0); MCHC 34.1 g/dL (28.0-37.0); MPV 9.3 fl. (7.2-11.1); RBC 4.12 mil/uL (4.50-6.00); RDW-CV 15.1 % (10.5-14.5); WBC 7.4 thou/uL (4.0-11.0)
[2018-06-29 02:54] LABS: MCV 93.5 fL (80.0-100.0)
[2018-06-29 03:05] LABS: ANION GAP 12 mmol/L (7-16); BUN 17 mg/dL (7-18); CALCIUM 8.4 mg/dL (8.5-10.1); CHLORIDE 101 mmol/L (98-107); CHOLESTEROL 199 mg/dL (<200); CO2 23 mmol/L (21-32); CREATININE 1.5 mg/dL (0.6-1.3); GLUCOSE 111 mg/dL (70-99); HDL CHOLESTEROL 38 mg/dL (>40); LDL CHOLESTEROL 144 mg/dL (<100); POTASSIUM 3.3 mmol/L (3.5-5.1); SODIUM 136 mmol/L (136-145); TC:HDL 5.2 Ratio (Not establshd); TRIGLYCERIDE 89 mg/dL (<150); TROPONIN-I LEVEL <0.06 ng/mL (<0.06); VLDL 18 mg/dL (<40)
[2018-06-29 03:13] LABS: SERUM ASSESSMENT CLEAR
[2018-06-29 03:23] LABS: INR 1.1; PROTIME 11.2 Seconds (9.20-11.50)
--- NOTE | 2018-06-29 03:33 | NUR ---
SERUM POTASSIUM 3.3, 40MEQ POTASSIUM PO GIVEN PER ELECTROLYTE PROTOCOL.
--- NOTE | 2018-06-29 03:45 | NUR ---
SPOKE WITH DR TROTTER, UPDATED FREQUENT PVC'S, COUPLETS, 6 BEAT RUN VTACH, TRIPLETS, INTERMITTENT AFIB, AND INTERMITTENT ST HR SUBSTAINING 130'S FOR APROX 30MIN INTERVALS, HR HIGH 120'S TO LOW 130'S AT THIS TIME, PT REMAINS ASYMPOTMATIC. B/P STABLE SYSTOLIC 130'S, DIASTOLIC 70'S, RESTING QUIETLY WITH EYES CLOSED AT THIS TIME, NEW ORDERS RECEIVED AMIODERONE 150CCMG IVPB BOLUS NOW. WILL INTIATE ORDERS AND CONTINUE TO MONITOR.
--- NOTE | 2018-06-29 06:22 | NUR ---
PROGRESSING TOWARDS GOALS, ALERT, AWAKE, WITH EYES OPEN, FOLLOWING SIMPLE COMMANDS, NODS HEAD APPROPRIATELTY TO SIMPLE QUESTIONS, ASYMETRICAL UPPER EXTREMITY MOVEMENT CONTINUES WITH RIGHT < LEFT. WEAK EMBEDDED SYSTEMS SOFTWARE ENGINEER RIGHT HAND WITH COMMAND. NO EMBEDDED SYSTEMS SOFTWARE ENGINEER ABILITY NOTED LEFT HAND. NODDING HEAD YES QUESTIONS R/T PAIN, FENTANYL 25MCG IVP GIVEN X2, HELPFUL FOR PAIN MANAGEMENT, TOLERATING NEPRO 40CC/HR VIA OG TUBE WITH 150CC FREE H20 FLUSHES Q6, FECAL MANAGEMENT SYSTEM DD LIQUID BROWN STOOL. TTT DONE BY RT THIS AM. EMOTIONAL SUPPORT PROVIDED.
--- NOTE | 2018-06-29 06:42 | NUR ---
AMIODERONE 150CC IV BOLUS GIVEN X1 PER ORDER, NSR WITH PVC'S, PAC'S TRACING SHELLFISH CHECKER WITH PVC'S. SERUM POTASSIUM LEVEL 3.3, REPLACED WITH 40MEQ PO [id number] X2 PER ELECTROLYTE REPLACEMENT ORDER, SERUM POTASSIUM LEVEL REDRAW ORDERED FOR 1000 THIS AM. DENIES PAIN, DISCOMFORT, SOA, DIZZYNESS, OR PALPITATIONS THIS SHIFT, B/P STABLE. DENIES NEEDS AT THIS TIME, CALL LIGHT REMAINS IN REACH.
--- NOTE | 2018-06-29 11:45 | NUR ---
REC'D REPORT FROM MARTIN RN FROM ICU AT 0740, PT ARRIVED TO UNIT APPROX 0800. A&O X4, ABLE TO COMMUNICATE NEEDS TO STAFF. DIRECTOR OF MUSIC THERAPY IN PLACE, SR. O2 SATS 96% RA. ASSESSMENT COMPLETE. VSS. MEDS PER SEP. UP AD SONIYA IN ROOM WITH STEADY GAIT. HOURLY ROUNDING FOR SAFETY.
--- NOTE | 2018-06-29 15:30 | NUR ---
Pt is A&O. Resides at home with his . Independent and active. No DME. No hx of HH or SNF. Goal is home at [place]. Cardiology following.
--- NOTE | 2018-06-29 16:00 | NUR ---
OT INFORMED THIS NURSE THAT PT HAD EPISODE OF DIZZINESS DURING THERAPY. ASSESSMENT OF PT REVEALS CONTINUED DIZZINESS BUT PT STATES "IT'S A LITTLE BETTER THAN BEFORE." ASKED PT TO LIE DOWN IN BED, RAISED FOOT OF BED UP TO ALLOW FOR OPTIMUM PERFUSION. BP'S 90/50'S, HR 60.
--- NOTE | 2018-06-29 16:34 | EKG ---
[place] [address] ELECTROCARDIOGRAM REPORT Name: JUAN RAMON CASAS JR Room: [address] ADM IN M.R.#: [id number] Admission: 06/28/18 Attend Phys: Daija Ndiaye MD Discharge: Date of : 43 Report #: [id number] THIS REPORT FOR: //name// [facility] Test Date: 2018-06-29 Test Time: 01:40:54 Pat Name: JUAN RAMON CASAS Department: Room: [facility] Gender: M Assistant Portfolio Manager: SCOTT GARCIA : 1945 Requested By: Mario Harrison Order Number: [id number] Josafat MD: Ruslan Kimbrough Measurements Intervals [place] Rate: 129 P: 81 [place]: 82 QRS: 24 QRSD: 102 T: 40 QT: 367 QTc: 538 Interpretive Statements Sinus tachycardia Probable LVH with secondary repol abnrm ST depression, consider ischemia, diffuse lds Prolonged QT interval Baseline wander in lead(s) V2 Compared to ECG 06/28/2018 02:06:47 Possible ischemia now present Prolonged QT interval now present Atrial fibrillation no longer present ST (T wave) deviation still present Electronically Signed On 06-29-2018 16:34:29 MITERING MACHINE OPERATOR by Ruslan Kimbrough [email or web address] <ELECTRONICALLY SIGNED> By: Ruslan Kimbrough MD, FACC 06/29/18 1634 9 9 Ruslan Kimbrough MD, FACC /EPI
--- NOTE | 2018-06-29 16:36 | EKG ---
[place] [address] ELECTROCARDIOGRAM REPORT Name: JUAN RAMON CASAS JR Room: [address] ADM IN M.R.#: [id number] Admission: 06/28/18 Attend Phys: Daija Ndiaye MD Discharge: Date of : 43 Report #: [id number] THIS REPORT FOR: //name// [facility] Test Date: 2018-06-29 Test Time: 09:54:11 Pat Name: JUAN RAMON CASAS Department: Room: [facility] Gender: M Director Of Public Health: : 1945 Requested By: Ruslan Kimbrough Order Number: [id number] Reading MD: Ruslan Kimbrough Measurements Intervals [place] Rate: 77 P: 72 ND: 170 QRS: 43 QRSD: 92 T: 73 QT: 437 QTc: 495 Interpretive Statements Sinus rhythm Biatrial enlargement Probable left ventricular hypertrophy Borderline prolonged QT interval Compared to ECG 06/28/2018 02:06:47 Atrial abnormality now present Atrial fibrillation no longer present ST (T wave) deviation no longer present Electronically Signed On 06-29-2018 16:36:24 PALEOBOTANIST by Ruslan Kimbrough [email or web address] <ELECTRONICALLY SIGNED> By: Ruslan Kimbrough MD, FACC 06/29/18 1636 0954 0954 Ruslan Kimbrough MD, FAC /EPI
--- NOTE | 2018-06-29 17:00 | NUR ---
ASSESSED PT AT 1630, BP CONTINUES 90/50'S WITH PT C/O SLIGHT LIGHTHEADEDNESS, BACK PAIN AND FEELING "WIPED OUT" PER HIS DESCRIPTION. PHYSICIAN PAGED. EKG OBTAINED, CONSISTENT WITH PREVIOUS RHYTHM STRIPS/EKG. POTASSIUM LAB OBTAINED, PENDING.
--- NOTE | 2018-06-29 17:22 | CON ---
[address] [address] CONSULTATION Name: JUAN RAMON CASAS Room: [address] IN M.R.#: [id number] Admission: 06/28/18 Attend Phys: Daija Ndiaye MD Discharge: Date of : 43 Report #: [id number] THIS REPORT FOR: //name// CC: Osiel Love DO Daija Ndiaye DATE OF SERVICE: 06/28/2018 CARDIOLOGY CONSULTATION: HISTORY OF PRESENT ILLNESS: The patient is a 72-year-old black male who I was asked to see in the hospital today after he was noted to be in atrial fibrillation. The patient has a long history of hypertension. He was actually admitted here to [place] in 07/2017 complaining of shortness of breath. At that time, he had been taking high blood pressure medications. He was seen by my partner, Dr. Ruslan Kimbrough, at that time. The patient was discharged after several days and felt to have diastolic heart failure. He did undergo an echocardiogram at that time that showed ejection fraction of 60% with left atrial enlargement. The patient followed up with Dr. Kimbrough in the Cardiology Clinic in February of this year and was doing well. Dr. Kimbrough made no changes in his medications. The patient states that he quit smoking and began to feel much better. He stays very active. Because of that, he stopped all his medications. The patient notes that recently he has had a cough. He had a chest x-ray that apparently showed a small nodule. He just recently underwent a CT scan of the chest and was told there was no significant abnormality. He was told to have a followup CT scan in a year. He awakened last night about 2:00 a.m. short of breath and lightheaded. He felt his heart beating fast. He came to the Emergency Room and was found to be in rapid a-fib. He was started on intravenous diltiazem. He converted to sinus rhythm. I was asked to see him for further evaluation and treatment. He denies any chest pain, edema, fever. PAST MEDICAL HISTORY: Significant for hernia repair, tonsillectomy, shoulder surgery. No history of diabetes. He does have a history of hyperlipidemia. His previous medications before he stopped taking all of his medications included carvedilol, nifedipine, Lipitor, Lasix. ALLERGIES: He has no known drug allergies. FAMILY HISTORY: His mother had renal failure. SOCIAL HISTORY: He is . He and his live in [place]. 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 He quit smoking in July. He will drink up to 6 pack of [place] [address] CONSULTATION Name: JUAN RAMON CASAS JR Room: [address] IN ..#: [id number] Admission: 06/28/18 Attend Phys: Daija Ndiaye MD Discharge: Date of : 43 Report #: [id number] REVIEW OF SYSTEMS: He has had no history of stroke, asthma, peptic ulcer disease, liver disease, kidney disease, cancer, psychiatric illness, chronic skin condition. PHYSICAL EXAMINATION: GENERAL: Revealed an elderly black male, appeared in no distress. VITAL SIGNS: Currently, he has blood pressure 130/70, pulse is 90, he is afebrile. HEENT: He was anicteric. Conjunctivae pink. Mucous members moist. NECK: Veins do not appear distended. Right carotid bruit was heard. NECK: Supple. CHEST: Clear to auscultation. CARDIOVASCULAR: Regular rate and rhythm. ABDOMEN: Soft. EXTREMITIES: Had no edema. Dorsalis pedis pulse cannot be palpated. SKIN: Cool and dry. NEUROLOGIC: Nonfocal. LABORATORY DATA: His ECG on admission last night showed rapid atrial fibrillation, left ventricular hypertrophy, repolarization changes. Currently, he is in a sinus rhythm. The patient did have an echocardiogram today that showed left ventricular hypertrophy, ejection fraction 60%, left atrial enlargement, aortic sclerosis, moderate mitral regurgitation. Workup today he had portable chest x-ray in the Emergency Room last night that showed mild vascular congestion. His lab work, sodium 139, BUN 18, creatinine 2.1, which is up from 1.6 in July, glucose 188. Troponin 0.07. BNP 559. In July, cholesterol is 202, triglyceride 89, HDL 34, LDL 151. TSH 3.5. White blood cell count 11.1, hemoglobin 14.1. IMPRESSION AND RECOMMENDATIONS: 1. Atrial fibrillation. The patient apparently has been on amiodarone in the past. I would recommend resuming. I would recommend anticoagulation. Because of his kidney disease, I would consider warfarin. 2. Hypertension. I would resume his medications. The patient previously had been on beta jenifer and calcium jenifer. 3. Previous tobacco abuse. 4. Chronic obstructive pulmonary disease. 5. Carotid bruit. Recommend Doppler. 6. Hyperlipidemia. Recommend statin drug. <ELECTRONICALLY SIGNED> By: Mario Harrison MD, [facility] 06/29/18 1722 1645 [id number] Harrison MD, FACC /nt
--- NOTE | 2018-06-29 17:30 | NUR ---
DR. SAVAGE TO FOR ASSESSMENT. PT STATES "I FEEL A LITTLE BETTER." EDUCATION GIVEN DURING ASSESSMENT R/T GOALS OF TREATMENT AND PT TOLERANCE OF MEDICATION. PT VOICED UNDERSTANDING. DR. CANO INFORMED OF PT CHANGE IN SYMPTOMS, NEW ORDERS OBTAINED.
[2018-06-30 00:22] VITALS: BP 130/64
[2018-06-30 04:00] VITALS: BP 134/65
[2018-06-30 04:56] LABS: INR 1.1; PROTIME 11.5 Seconds (9.20-11.50)
--- NOTE | 2018-06-30 06:43 | NUR ---
pt is alert and oriented this shift, pt complains of being tired, denies pain, discomfort, carvedilol held this shift, pts blood pressure has been wnl for this pt, heart rate continues becky 50-60, pt denies chest pain, shortness of air, continues on 2l supplemental o2 via nc, cardiac nurse specialist tracing bradycardia, pt rests queitly through the night and is up ad narciso no s/s acute distress noted
[2018-06-30 07:30] VITALS: BP 140/69
[2018-06-30 11:20] VITALS: BP 140/69
[2018-06-30 12:00] VITALS: BP 154/63
[2018-06-30] MEDS ORDERED: PACERONE 200 M200 M1 PO (12:10)
--- NOTE | 2018-06-30 12:12 | EKG ---
[place] [address] ELECTROCARDIOGRAM REPORT Name: JUAN RAMON CASAS JR Room: [address] ADM IN M.R.#: [id number] Admission: 06/28/18 Attend Phys: Daija Ndiaye MD Discharge: Date of : 43 Report #: [id number] THIS REPORT FOR: //name// [facility] Test Date: 2018-06-29 Test Time: 17:36:51 Pat Name: JUAN RAMON CASAS Department: Room: [address] Gender: M Employment Agency Manager: : 1945 Requested By: Mario Harrison Order Number: [id number] Reading MD: Karlo Amaral Measurements Intervals [place] Rate: 56 P: 68 [place]: 162 QRS: 35 QRSD: 86 T: 66 QT: 506 QTc: 489 Interpretive Statements Sinus rhythm LAE, consider biatrial enlargement Probable left ventricular hypertrophy Borderline prolonged QT interval Baseline wander in lead(s) V1 Compared to ECG 06/29/2018 09:54:11 No significant changes Electronically Signed On 06-30-2018 12:12:45 PATENTED HOGSHEAD ASSEMBLER by Karlo Amaral [email or web address] <ELECTRONICALLY SIGNED> By: Karlo Amaral MD, FACC 06/30/18 1212 1736 1736 Karlo Amaral MD, FAC /EPI
[2018-06-30] MEDS ORDERED: COUMADIN 2 MG TA2 M1 PO (12:13)
--- NOTE | 2018-06-30 12:14 | EKG ---
[place] [address] ELECTROCARDIOGRAM REPORT Name: JUAN RAMON CASAS JR Room: [address] ADM IN M.R.#: [id number] Admission: 06/28/18 Attend Phys: Daija Ndiaye MD Discharge: Date of : 43 Report #: [id number] THIS REPORT FOR: //name// [facility] Test Date: 2018-06-30 Test Time: 08:06:49 Pat Name: JUAN RAMON CASAS Department: Room: [address] Gender: M Farm Contractor Buyer: : 1945 Requested By: Mario Harrison Order Number: [id number] Reading MD: Karlo Amaral Measurements Intervals [place] Rate: 66 P: 72 MD: 164 QRS: 33 QRSD: 101 T: 64 QT: 484 QTc: 508 Interpretive Statements Sinus rhythm Atrial premature complex LAE, consider biatrial enlargement RSR' in V1 or V2, probably normal variant Left ventricular hypertrophy Prolonged QT interval Compared to ECG 06/29/2018 09:54:11 Atrial premature complex(es) now present RSR' in V1 or V2 now present Electronically Signed On 06-30-2018 12:13:43 LICENSED PESTICIDE APPLICATOR by Karlo Amaral [email or web address] <ELECTRONICALLY SIGNED> By: Karlo Amaral MD, FACC 06/30/18 1213 0806 0806 Karlo Amaral MD, FAC /EPI
--- NOTE | 2018-06-30 13:09 | NUR ---
RECEIVED DISCHARGE ORDERS PER DR SAVAGE. CARDIOLOGY OK WITH DC TODAY. MEDICATIONS ADJUSTED PER CARDIOLOGY. NO PAPER SCRIPTS WERE LEFT, SO NEW MEDICATIONS WERE CALLED INTO THE PATIENTS PHARMACY. EDUCATED THE PT ON F/U APPT WITH HIS PRIMARY AND WITH THE CARDIOLOGY NURSE PRACTITIONER. IV DISCONTINUED. HYDROPRESS OPERATOR REMOVED AND RETURNED TO NURSE'S DESK. PATIENT DENIES ANY QUESTIONS OR CONCERNS AT DISCHARGE. HE IS LEAVING VIA WHEELCHAIR ACCOMPANIED BY NURSING STAFF. NO QUESTIONS AT TIME OF DC.
== END 2018-06-30 13:13 | disposition home or self-care (01) | DRG 682 ==
LOC: M.ERS 01:56 → M.TBA-ER 03:01 → M.ICU 03:01 → M.2W 06-29 08:00
PROVIDERS: Emergency Medicine Emergency Medical Services; Internal Medicine Cardiovascular Disease; ADMIT Internal Medicine
DX: N17.0 Acute kidney failure with tubular necrosis (principal); I50.33 Acute on chronic diastolic (congestive) heart failure; J96.20 Acute and chronic respiratory failure, unspecified whether with hypoxia or hypercapnia; I13.0 Hypertensive heart and chronic kidney disease with heart failure and stage 1 through stage 4 chronic kidney disease, or unspecified chronic kidney disease; N18.3 Chronic kidney disease, stage 3 (moderate); I48.91 Unspecified atrial fibrillation; E78.5 Hyperlipidemia, unspecified; J44.9 Chronic obstructive pulmonary disease, unspecified; F12.90 Cannabis use, unspecified, uncomplicated; I25.10 Atherosclerotic heart disease of native coronary artery without angina pectoris; I25.2 Old myocardial infarction; Z84.1 Family history of disorders of kidney and ureter; Z87.891 Personal history of nicotine dependence; Z91.14 Patient's other noncompliance with medication regimen